=== PATIENT | female | born 1950 | race Caucasian/White ===

== ENCOUNTER 2018-09-19 09:41 | Outpatient (CLI) | payer OTHER, SELFPAY ==
--- NOTE | 2018-09-19 07:30 | DI.MAMMO_ITS ---
SYMPTOM/DIAGNOSIS: SCREENING MAMMOGRAMS: Mammograms were interpreted according to the usual protocol including computer analysis with CAD system, tomosynthesis and C view imaging. Comparison is made with 2017. The breasts are composed of heterogeneously dense fibroglandular tissue, breast density, Category C. The patient did not tolerate adequate compression and was unable to adequately breath hold. There has been interval decrease in size of the previously noted nodule in the posterior central right breast. No suspicious masses or suspicious microcalcifications are seen. IMPRESSION: Category 2, negative mammogram with benign findings. Yearly screening mammography is recommended. SA ASSESSMENT OF FINDINGS: Negative with benign findings. Category 2. Patient will receive a letter notifying them of these results. Bi-RADS category C. The breasts are heterogeneously dense, which may obscure small masses.
[2018-09-19 08:22] LABS: HCT 44.1 % (36.0-46.0); HGB 14.4 g/dL (12.0-15.5); Mean Corp. HGB Concentration 32.7 g/dL (32.0-36.0); Mean Corpuscular Hemoglobin 31.4 pg (27.0-33.0); Mean Corpuscular Volume 96.3 fL (80-95); Mean Platelet Volume 10.2 fL (8.0-11.0); Platelet Count 342 x1000/uL (130-400); RBC 4.58 m/cumm (4.00-5.20); RBC Distribution Width 13.2 % (11.7-14.6); White Blood Cell Count 9.04 k/cumm (4.4-10.8)
[2018-09-19 08:28] LABS: Hemoglobin A1C 5.1 % (4.5-6.2)
[2018-09-19 09:02] LABS: ALT 24 U/L (12-78); AST 17 U/L (15-37); Albumin 3.3 g/dL (3.4-5.0); Alkaline Phosphatase 97 U/L (46-116); Anion Gap 11.1 mmol/L (3-11); BUN 16 mg/dL (7-18); Bilirubin, Total 0.7 mg/dL (0.2-1.0); CO2 27.9 mmol/L (21.0-32.0); CREATININE 0.94 mg/dL (0.55-1.02); Calcium 8.8 mg/dL (8.5-10.1); Chloride 104 mmol/L (98-107); Cholesterol 184 mg/dL (50-200); Estimated GFR 59.22 (mL/min/1.73m2); Glucose 112 mg/dL (70-100); HDL Cholesterol 45 mg/dL (40-60); LDL CHOLESTEROL 124 mg/dL (<100); Potassium 3.9 mmol/L (3.5-5.1); Sodium 143 mmol/L (136-145); Total Protein 7.1 g/dL (6.4-8.2); Triglyceride 91 mg/dL (30-150)
== END 2018-09-19 10:01 ==
PROVIDERS: PCP Nurse Practitioner; Visit Provider Nurse Practitioner
DX: Z12.31 Encounter for screening mammogram for malignant neoplasm of breast (principal); R73.01 Impaired fasting glucose; E11.9 Type 2 diabetes mellitus without complications; E66.9 Obesity, unspecified
CPT/HCPCS: 36415; 77063; 77067; 80053; 80061; 83721; 85027; 83036

== ENCOUNTER 2018-11-29 07:49 | Outpatient (CLI) | payer OTHER, SELFPAY | END 2018-11-29 08:09 | PROVIDERS: PCP Nurse Practitioner; Visit Provider Surgery | DX: Z01.818 Encounter for other preprocedural examination (principal) ==

== ENCOUNTER 2018-12-11 07:05 | Day surgery (SDC) | payer OTHER, SELFPAY ==
[2018-11-29 08:10] VITALS: BP 191/79; PULSE 89; RESP 20; TEMP 37.5; O2SAT 97
--- NOTE | 2018-11-29 08:34 | NUR.NOTE ---
11/29/18 8430 - Spoke with Kelsey from Bella's office in regards to getting clearance for Rafal to hold her pradaxa for her colonoscopy. Pt informed that she would received instructions on when to hold her pradaxa from either her PCP or from Dr. Blanco's office. Damien Henriquez CRNA into see pt for Anes pre op. Nursing Note:
--- NOTE | 2018-12-11 07:01 | COLE_ITS ---
Date of service: 12/11/18 Time of Service: 08:22 Colonoscopy Report Date of procedure: 12/11/18 Pre-op diagnosis general: FHx of colon Cancer and screening Post-op diagnosis procedure note: other (FHx, severe descending diverticulosis, rectal polyp) Procedure: Colonoscopy with polypectomy by cold forceps Surgeon: Brenda Blanco Anesthesia proc note operative: other (General/ ASA3 / Crystal Carrera, HEALTH INFORMATICS SPECIALIST) Estimated blood loss (mL): 5 Pathology: other (rectal polyp) Complications: None Disposition: same day Indications: Mrs. Staples is a pleasant 68 year old female seen in the office for a screening colonoscopy. Risks, benefits and complications have been reviewed. Complications include but are not limited to bleeding, pain, perforation, missed small lesion/polyp, sore throat, aspiration and adverse reaction to the medications. Questions were entertained and answered to their satisfaction and they wished to proceed. No guarantees were given or implied. Prep: Miralax/Dulcolax Procedure Start Time: :22 Procedure End Time: 08:48 Retraction Time: 16 minutes Findings: Severe Diverticulosis of the descending and sigmoid colon Small sessile rectal polyp Grade 1 internal hemorrhoids Procedure Description: After informed consent was obtained the patient was taken to the procedure room and placed in a left decubitous position. Monitors were applied and a time out was done. The patients name, date of , procedure, al lergies to medications and metal in their body was reviewed. The patient was then sedated. Once sedated and comfortable a rectal exam was done. External exam was normal. Internal exam revealed a normal sphincter tone and no palpable masses. The scope was then introduced and retro-flexed. Grade 1 internal hemorrhoids were identified. There was a small sessile polyp identified on retro-flexion and it was removed with cold forceps. The scope was then advanced to the cecum with some difficulty due to the patient morbid obesity. The TI and appendiceal orifice were identified. The prep was adequate. The scope was then slowly retracted over 16 minutes back into the rectum. There was severe Diverticulosis of the descending and sigmoid colon. The scope was removed and the patient was woken up and taken back to Same day surgery in stable condition. Patient did have an episode of bradycardia as well desaturation as I was trying to get into the cecum. Patient recovered with some more O2. The patient tolerated the procedure well and there were no immediate complications. Follow up: The patient should follow up in 3-5 years unless they develop changes in bowel habits or other new gastrointestinal complaints.
--- NOTE | 2018-12-11 07:01 | W.PM.DSUDISC ---
Discharge Plan Disposition Patient Disposition: HOME Condition: Good Discharge Details Reason For Visit: Colon Cancer screening Attending Provider: Brenda Blanco Primary Care Provider: Komal Ríos Home Meds and New Rx's Prescriptions: Continued Pradaxa 150 mg capsule 150 mg PO BID Qty: 180 RF: 3 Prilosec OTC 20 MG tablet,delayed release (DR/EC) 20 mg PO DAILY RF: 0 Centrum Complete 1 EACH tablet 1 ea PO DAILY RF: 0 Discontinued polyethylene glycol 3350 17 gram/dose powder 238 g PO ONCE Qty: 238 RF: 0 bisacodyl [Dulcolax (bisacodyl)] 5 mg tablet,delayed release (DR/EC) 5 mg PO ONCE Qty: 4 RF: 0 No Action polyethylene glycol 3350 17 gram/dose Powder 255 g PO RF: 0 bisacodyl 5 mg Tablet 10 mg PO RF: 0 Discharge Instructions Instructions: Colonoscopy (DC), Diverticulosis (GEN), Colorectal Polyps (DC), Hemorrhoids (GEN) Additional Instructions: Findings: one small polyp Severe diverticulosis Internal hemorrhoids Follow up: 3-5 years Please call if you develop: fevers >101.5 Nausea or Vomiting Abdominal pain that is not transient DAY SURGERY UNIT POST COLONOSCOPY INSTRUCTIONS 1. Because there will be medication in your system for the next 24 hours, you may feel a little sleepy. Your coordination will be affected. Therefore: a. Do not drive or operate dangerous equipment for 24 hours. b. Do not drink alcohol beverages for 24 hours (not even beer). c. Plan to go home and rest for the day. 2. Generally there are no restrictions on your activity after a day or so has gone by, but you may feel a bit fatigued for a few days. 3 After you arrive home you may have a light meal and return to a normal diet as you can tolerate it without feeling sick to your stomach. 4. After surgery, you may feel pain or discomfort. This should be only transient, but if it persists please contact your doctor. 5. If there are any questions regarding the findings of your procedure, please feel free to contact your doctor. 6. If you are unable to contact your doctor with a problem, contact the hospital at [phone]. 7. Continue all your regular medications unless directed otherwise. I understand the above instructions and have no questions. Signature of Patient or Responsible Adult Escort Date/Time Name of Responsible Adult Escort Signature of Nurse Date/Time Activity:: Activity as Tolerated Diet:: High Fiber diet Discharge Orders Discharge Orders: Discharge Order (Routine); Ordered 12/11/18 Ordered By: Brenda Blanco DS: Diagnosis Discharge Diagnosis (1) S/P colonoscopy: Status: Acute (2) Diverticulosis large intestine w/o perforation or abscess w/o bleeding: Status: Acute
[2018-12-11 07:18] VITALS: BP 182/88; PULSE 96; RESP 18; TEMP 36.5; O2SAT 97
[2018-12-11] MEDS: Lactated Ringers 1,000 ML 80 ML IV (07:49)
--- NOTE | 2018-12-11 08:24 | BOWEL_PTH ---
PATIENT: Rafal Staples LOC: [facility] U#:[id number] AGE/SX: 68/F ROOM: RE12/11/[address]: Brenda Blanco MD : [id number] BED: DIS: 12/11/2018 SPEC #: [id number] RECD: 12/11/18 12:47 STATUS: OSMANY REMadelaine #: [id number] SYDNEY: 12/11/18 08:[address]: Brenda Blanco DEPT: Surgical Specimen RECD BY: Nicole Wells ENTERED: 12/11/18 12:47 SP TYPE: Bowel OTHR DR: Komal Ríos APRN Tissues: 1 - BIOPSY BOWEL Procedures: GROSS AND MICRO LEVEL 4 Comments: [id number]
[2018-12-11 09:35] VITALS: BP 137/72; PULSE 88; RESP 16; TEMP 36.3; O2SAT 97
== END 2018-12-11 10:09 | disposition home or self-care (01) ==
LOC: SUR 07:05
PROVIDERS: PCP Nurse Practitioner; Visit Provider Surgery
PROC: 0DJD8ZZ Inspection of Lower Intestinal Tract, Via Natural or Artificial Opening Endoscopic (ICD-10-PCS; CPT 45378; principal; 2018-12-11 08:15)
DX: Z12.11 Encounter for screening for malignant neoplasm of colon (principal); K62.1 Rectal polyp; Z80.0 Family history of malignant neoplasm of digestive organs; K21.9 Gastro-esophageal reflux disease without esophagitis
CPT/HCPCS: 45380; 88305; J2405

== ENCOUNTER 2019-09-16 07:15 | Outpatient (CLI) | payer OTHER, SELFPAY ==
[2019-09-16 07:31] LABS: HCT 42.7 % (36.0-46.0); HGB 14.1 g/dL (12.0-15.5); Mean Corpuscular Hemoglobin 31.4 pg (27.0-33.0); Mean Corpuscular Volume 95.1 fL (80-95); Mean Platelet Volume 9.6 fL (8.0-11.0); Platelet Count 341 x1000/uL (130-400); RBC 4.49 m/cumm (4.00-5.20); RBC Distribution Width 12.9 % (11.7-14.6); White Blood Cell Count 7.91 k/cumm (4.4-10.8)
[2019-09-16 07:56] LABS: Hemoglobin A1C 5.2 % (3.8-5.6)
[2019-09-16 09:38] LABS: ALT 28 U/L (14-59); AST 16 U/L (15-37); Albumin 3.3 g/dL (3.4-5.0); Alkaline Phosphatase 107 U/L (46-116); BUN 15 mg/dL (7-18); Bilirubin, Total 0.5 mg/dL (0.2-1.0); CREATININE 0.77 mg/dL (0.55-1.02); Calcium 8.4 mg/dL (8.5-10.1); Calculated LDL 113 mg/dL (<100); Chloride 106 mmol/L (98-107); Cholesterol 168 mg/dL (<200); Glucose 109 mg/dL (74-106); HDL Cholesterol 42 mg/dL (40-60); Potassium 3.9 mmol/L (3.5-5.1); Sodium 144 mmol/L (136-145); Total Protein 6.7 g/dL (6.4-8.2); Triglyceride 69 mg/dL (<150)
== END 2019-09-16 07:35 ==
PROVIDERS: PCP Nurse Practitioner; Visit Provider Nurse Practitioner
DX: E11.9 Type 2 diabetes mellitus without complications (principal); I26.99 Other pulmonary embolism without acute cor pulmonale; K21.9 Gastro-esophageal reflux disease without esophagitis; E66.9 Obesity, unspecified
CPT/HCPCS: 36415; 80053; 80061; 85027; 83036

== ENCOUNTER 2020-03-11 10:42 | Outpatient (REF) | payer OTHER, SELFPAY ==
[2020-03-11 20:16] LABS: Abs Immature Grans 0.03 10^3/uL (0.0-0.06); Absolute Basophil Count 0.07 10^3/uL (0.0-0.2); Absolute Eosinophil Count 0.07 10^3/uL (0.0-0.7); Absolute Lymphocyte Count 2.02 10^3/uL (1.2-3.4); Absolute Monocyte Count 0.73 10^3/uL (0.1-0.8); Absolute Neutrophil Count 5.58 10^3/uL (1.2-6.7); Basophils % 0.8; Eosinophils % 0.8; HCT 42.9 % (36.0-46.0); HGB 13.9 g/dL (11.2-15.7); Immature Grans % 0.4; Lymphocytes % 23.8; MCH 31.3 pg (27.0-33.0); MCHC 32.4 % (32.0-36.0); MCV 96.6 fL (80-95); MPV 10.6 fL (8.0-11.0); Monocytes % 8.6; Neutrophils % 65.6; Platelet Count 365 10^3/uL (130-400); RBC 4.44 10^6/uL (3.93-5.22); RDW 12.7 % (11.7-14.6); RDW-SD 44.8 fL
[2020-03-11 20:39] LABS: Hemoglobin A1C 5.1 % (3.8-5.6)
== END 2020-03-11 11:02 ==
LOC: LBN 10:42
PROVIDERS: Surgery; PCP Nurse Practitioner; Visit Provider Nurse Practitioner Adult Health
DX: I87.302 Chronic venous hypertension (idiopathic) without complications of left lower extremity (principal); R60.0 Localized edema; E66.9 Obesity, unspecified; I26.99 Other pulmonary embolism without acute cor pulmonale; L02.416 Cutaneous abscess of left lower limb; L03.116 Cellulitis of left lower limb
CPT/HCPCS: 83036; 85025

== ENCOUNTER 2021-11-23 09:41 | Outpatient (REF) | payer OTHER, SELFPAY ==
[2021-11-23 16:48] LABS: HCT 42.9 % (36.0-46.0); HGB 13.7 g/dL (11.2-15.7); MCH 31.1 pg (27.0-33.0); MCHC 31.9 % (32.0-36.0); MCV 97.3 fL (80-95); Platelet Count 337 10^3/uL (130-400); RBC 4.41 10^6/uL (3.93-5.22); RDW 12.6 % (11.7-14.6); RDW-SD 45.1 fL
[2021-11-23 17:15] LABS: ALT 23 U/L (14-59); AST 15 U/L (15-37); Albumin 3.2 g/dL (3.4-5.0); Alkaline Phosphatase 102 U/L (46-116); BUN 14 mg/dL (7-18); Bilirubin, Total 0.5 mg/dL (0.2-1.0); CREATININE 0.8 mg/dL (0.55-1.02); Calcium 8.5 mg/dL (8.5-10.1); Calculated LDL 109 mg/dL (<100); Chloride 106 mmol/L (98-107); Cholesterol 166 mg/dL (<200); Glucose 129 mg/dL (74-106); HDL Cholesterol 42 mg/dL (40-60); Potassium 4.3 mmol/L (3.5-5.1); Sodium 143 mmol/L (136-145); Total Protein 6.5 g/dL (6.4-8.2); Triglyceride 75 mg/dL (<150)
[2021-11-23 18:08] LABS: Hemoglobin A1C 5.1 % (<5.7)
== END 2021-11-23 09:42 | disposition home or self-care (01) ==
LOC: LBN 09:41
PROVIDERS: PCP Nurse Practitioner; Visit Provider Nurse Practitioner
DX: R73.09 Other abnormal glucose; I26.99 Other pulmonary embolism without acute cor pulmonale; E66.01 Morbid (severe) obesity due to excess calories
CPT/HCPCS: 80053; 80061; 85027; 83036

== ENCOUNTER 2021-12-30 09:29 | Outpatient (CLI) | payer OTHER, SELFPAY ==
[2021-12-30 13:00] VITALS: BP 163/76; PULSE 72; RESP 20; TEMP 36.4; O2SAT 96
[2021-12-30 14:15] VITALS: BP 153/68; PULSE 62; RESP 20; TEMP 36.8; O2SAT 96
== END 2021-12-30 09:30 | disposition home or self-care (01) ==
LOC: INF 09:38
PROVIDERS: PCP Nurse Practitioner; Visit Provider Family Medicine
DX: U07.1 COVID-19 (principal)
CPT/HCPCS: 96374; Q0222

== ENCOUNTER 2022-01-05 15:25 | Emergency (ER) | payer OTHER, SELFPAY ==
[2022-01-05] VITALS (31 sets, daily range): BP systolic 147–169; BP diastolic 61–86; PULSE 56–69; RESP 12–25; TEMP 36.8; O2SAT 95–100
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
[2022-01-05] MEDS: Cyclobenzaprine 10 MG TAB PO (15:55)
[2022-01-05] MEDS: Acetaminophen 325 MG TAB 650 MG PO (15:55)
--- NOTE | 2022-01-05 16:00 | RT.EKG_ITS ---
APPROVED REPORT Exam: Resting ECG Reason for Exam: low heart rate Patient Location: E HR:58 bpm ECG Measurements Heart Rate 58 AXIS VT 185 P 2 QRSd 128 QRS -10 QT 440 T 62 QTc 450 Conclusion Sinus rhythm...normal P axis, V-rate 60- 99 Sinus pause...long R-R interval, normal QRSd IVCD, consider RBBB...QRSd>120mS, terminal axis(90,270) sinus bradycardia, left axiks, sinus pause, incomplete RBBB
== END 2022-01-05 18:16 | disposition home or self-care (01) ==
PROVIDERS: Emergency Provider Emergency Medicine; PCP Nurse Practitioner
DX: M25.511 Pain in right shoulder (principal); S80.812A Abrasion, left lower leg, initial encounter; R07.89 Other chest pain; M79.662 Pain in left lower leg; V49.49XA Driver injured in collision with other motor vehicles in traffic accident, initial encounter; M25.562 Pain in left knee; R00.1 Bradycardia, unspecified
CPT/HCPCS: 93005; 99284; 71045; 73030; 73560; 73590; 93010

== ENCOUNTER 2022-11-28 12:08 | Outpatient (REF) | payer OTHER, SELFPAY ==
[2022-11-28 17:06] LABS: ALT 26 U/L (14-59); AST 16 U/L (15-37); Albumin 3.4 g/dL (3.4-5.0); Alkaline Phosphatase 98 U/L (46-116); Anion Gap 6.9 mmol/L (3-11); BUN 14 mg/dL (7-18); Bilirubin, Total 0.5 mg/dL (0.2-1.0); CO2 30.1 mmol/L (21.0-32.0); CREATININE 0.9 mg/dL (0.55-1.02); Calcium 8.9 mg/dL (8.5-10.1); Calculated LDL 118 mg/dL (<100); Chloride 107 mmol/L (98-107); Cholesterol 178 mg/dL (<200); Estimated GFR 67.92 (mL/min/1.73m2); Glucose 98 mg/dL (74-106); HDL Cholesterol 42 mg/dL (40-60); Potassium 4.4 mmol/L (3.5-5.1); Sodium 144 mmol/L (136-145); TSH (W/Ref FT4) 1.54 uIU/mL (0.36-3.74); Total Protein 6.7 g/dL (6.4-8.2); Triglyceride 91 mg/dL (<150)
== END 2022-11-28 12:09 | disposition home or self-care (01) ==
LOC: LBN 12:08
PROVIDERS: PCP Nurse Practitioner; Visit Provider Nurse Practitioner
DX: I10 Essential (primary) hypertension (principal); I87.2 Venous insufficiency (chronic) (peripheral); I26.99 Other pulmonary embolism without acute cor pulmonale; E66.01 Morbid (severe) obesity due to excess calories
CPT/HCPCS: 80053; 80061; 84443

== ENCOUNTER 2023-12-05 05:02 | Outpatient (CLI) | payer OTHER, SELFPAY ==
[2023-12-05 07:45] LABS: Abs Immature Grans 0.02 10^3/uL (0.0-0.06); Absolute Basophil Count 0.07 10^3/uL (0.0-0.2); Absolute Eosinophil Count 0.11 10^3/uL (0.0-0.7); Absolute Lymphocyte Count 2.01 10^3/uL (1.2-3.4); Absolute Monocyte Count 0.46 10^3/uL (0.1-0.8); Absolute Neutrophil Count 5.04 10^3/uL (1.2-6.7); Basophils % 0.9; Eosinophils % 1.4; HCT 42.5 % (36.0-46.0); HGB 14.3 g/dL (11.2-15.7); Immature Grans % 0.3; Lymphocytes % 26.1; MCH 32.3 pg (27.0-33.0); MCHC 33.6 % (32.0-36.0); MCV 96 fL (80-95); Neutrophils % 65.3; Platelet Count 303 10^3/uL (130-400); RBC 4.43 10^6/uL (3.93-5.22); RDW 12.7 % (11.7-14.6); RDW-SD 44.6 fL; WBC 7.71 10^3/uL (4.4-10.8)
[2023-12-05 07:56] LABS: ALT 22 U/L (14-59); AST 15 U/L (15-37); Albumin 3.1 g/dL (3.4-5.0); Alkaline Phosphatase 92 U/L (46-116); Anion Gap 7.7 mmol/L (3-11); BUN 15 mg/dL (7-18); Bilirubin, Total 0.7 mg/dL (0.2-1.0); CO2 28.3 mmol/L (21.0-32.0); CREATININE 0.9 mg/dL (0.55-1.02); Calcium 8.7 mg/dL (8.5-10.1); Calculated LDL 99 mg/dL (<100); Chloride 106 mmol/L (98-107); Cholesterol 157 mg/dL (<200); Glucose 111 mg/dL (74-106); HDL Cholesterol 44 mg/dL (40-60); Potassium 3.6 mmol/L (3.5-5.1); Sodium 142 mmol/L (136-145); TSH (W/Ref FT4) 2.08 uIU/mL (0.36-3.74); Total Protein 6.8 g/dL (6.4-8.2); Triglyceride 71 mg/dL (<150)
[2023-12-05 08:25] LABS: Hemoglobin A1C 5.2 % (<5.7)
== END 2023-12-05 05:03 | disposition home or self-care (01) ==
LOC: LBO 05:02
PROVIDERS: PCP Nurse Practitioner; Visit Provider Nurse Practitioner
DX: E66.01 Morbid (severe) obesity due to excess calories (principal); I87.8 Other specified disorders of veins; I26.99 Other pulmonary embolism without acute cor pulmonale
CPT/HCPCS: 36415; 80053; 80061; 83036; 84443; 85025

== ENCOUNTER 2024-12-13 10:07 | Outpatient (CLI) | payer OTHER, SELFPAY ==
[2024-12-13 07:57] LABS: Abs Immature Grans 0.05 10^3/uL (0.0-0.06); Absolute Basophil Count 0.07 10^3/uL (0.0-0.2); Absolute Eosinophil Count 0.14 10^3/uL (0.0-0.7); Absolute Lymphocyte Count 1.95 10^3/uL (1.2-3.4); Absolute Monocyte Count 0.56 10^3/uL (0.1-0.8); Absolute Neutrophil Count 6.14 10^3/uL (1.2-6.7); Basophils % 0.8 %; Eosinophils % 1.6 %; HCT 43.4 % (36.0-46.0); Immature Grans % 0.6 %; Lymphocytes % 21.9 %; MCH 31.7 pg (27.0-33.0); MCHC 32.3 % (32.0-36.0); MCV 98 fL (80-95); MPV 9.9 fL (8.0-11.0); Monocytes % 6.3 %; Neutrophils % 68.8 %; Platelet Count 317 10^3/uL (130-400); RBC 4.42 10^6/uL (3.93-5.22); RDW 12.6 % (11.7-14.6); RDW-SD 45.3 fL; WBC 8.91 10^3/uL (4.4-10.8)
[2024-12-13 08:54] LABS: ALT 20 U/L (14-59); AST 14 U/L (15-37); Alkaline Phosphatase 103 U/L (46-116); Anion Gap 7.4 mmol/L (3-11); BUN 11 mg/dL (7-18); Bilirubin, Total 0.6 mg/dL (0.2-1.0); CO2 30.6 mmol/L (21.0-32.0); CREATININE 0.8 mg/dL (0.55-1.02); Calcium 8.1 mg/dL (8.5-10.1); Calculated LDL 102 mg/dL (<100); Chloride 106 mmol/L (98-107); Cholesterol 159 mg/dL (<200); Estimated GFR 77.27 (mL/min/1.73m2); Glucose 113 mg/dL (74-106); HDL Cholesterol 48 mg/dL (>or=50); Sodium 144 mmol/L (136-145); Total Protein 7.1 g/dL (6.4-8.2); Triglyceride 46 mg/dL (<150)
[2024-12-13 09:17] LABS: Hemoglobin A1C 5.1 % (<5.7)
== END 2024-12-13 10:08 | disposition home or self-care (01) ==
LOC: LBO 10:08
PROVIDERS: PCP Nurse Practitioner; Visit Provider Nurse Practitioner
DX: E66.9 Obesity, unspecified (principal); I26.99 Other pulmonary embolism without acute cor pulmonale; R60.0 Localized edema; Z86.711 Personal history of pulmonary embolism
CPT/HCPCS: 36415; 80053; 80061; 83036; 85025

== ENCOUNTER 2025-01-14 00:53 | Outpatient (CLI) | payer OTHER, SELFPAY ==
--- NOTE | 2025-01-14 11:27 | DI.MAMMO_ITS ---
Exam(s) MAMMO SCREENING EXAM: MAMMO SCREENING CLINICAL HISTORY: screening,Z12.39. TECHNIQUE: Bilateral full field digital CC and MLO mammographic images were obtained with 3D tomosyn thesis and utilizing computer aided detection (CAD). COMPARISON: Prior mammograms were reviewed. FINDINGS: Small benign-appearing nodular densities in both breasts are again noted. The largest of these in th e right breast has decreased in size and is again noted be partially calcified. Small benign-appearing nodules in the left breast are unchanged. There are no new spiculated masses nor new malignant appearing microcalcification groups. There is no significant architectural distortion nor skin thickening-retraction. IMPRESSION: Benign findings. No radiographic evidence of malignancy. BI-RADS Category 2 - Benign Findings Breast Density - Category B - There are scattered areas of fibroglandular density. Breast density Category C or D implies that the patient has dense breast tissue. Dense breast tissue can make it harder to find cancer on a mammogram. Dense breast tissue is also associated with an incr eased risk of breast cancer. This information about the result of the mammogram report was provided to the patient to raise their awareness. Use this report when you speak with the patient about their risks for breast cancer, which includes their family history. At that time, you may recommend additional screening tests (Ultrasoun d or MRI) as these tests may add significant information. A negative radiographic report should not delay biopsy if a dominant or clinically suspicious mass is present. Up to ten percent of cancers are not identified on mammography. A negative report may reinforce clinical impression. Adenosis and dense breasts may obscure an underlying neoplasm. False positive reports average 6 to 10%. Patient will receive a letter notifying them of these results.
== END 2025-01-14 01:13 ==
LOC: DI 00:53
PROVIDERS: PCP Nurse Practitioner; Visit Provider Nurse Practitioner
DX: Z12.31 Encounter for screening mammogram for malignant neoplasm of breast (principal); R92.323 Mammographic fibroglandular density, bilateral breasts; D24.2 Benign neoplasm of left breast
CPT/HCPCS: 77063; 77067